=== PATIENT | male | born 2000 | race Caucasian/White ===

== ENCOUNTER 2023-09-24 08:31 | Day surgery (SDC) | payer BC ==
[2023-09-24] MEDS ORDERED: Propofol 200 MG/20 ML SDV ONE ×2 (08:44→10:26)
[2023-09-24] MEDS ORDERED: Ketamine HCL/NACL, ISO-OSM 50 MG/5 ML Syringe ONE (08:53)
[2023-09-24] MEDS: Lactated Ringers 1,000 ML IV SCH (09:38)
[2023-09-24] MEDS ORDERED: Ketorolac 30 MG/ML SDV ONE (10:27)
[2023-09-24] MEDS ORDERED: Lactated Ringers 1,000 ML IV SCH (11:15)
== END 2023-09-24 11:28 | disposition home or self-care (01) ==
LOC: MW.SDS 08:31
PROVIDERS: ATTEND Surgery
DX: K20.90 Esophagitis, unspecified without bleeding (principal); K31.A0 Gastric intestinal metaplasia, unspecified; K44.9 Diaphragmatic hernia without obstruction or gangrene; E11.9 Type 2 diabetes mellitus without complications; Z79.84 Long term (current) use of oral hypoglycemic drugs; Z79.899 Other long term (current) drug therapy
CPT/HCPCS: 43239; 45380; J1885; J2704; J7120; 00813; J3490